=== PATIENT | male | born 2000 | race Two or more races ===

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

== ENCOUNTER 2024-07-08 21:34 | Emergency (ER) | payer MEDICAID, SELFPAY ==
[2024-07-08 21:40] VITALS: BP 126/65; PULSE 54; RESP 18; TEMP 36.6; O2SAT 100; BMI 16.7
[2024-07-08] MEDS: Acetaminophen 325 MG TABLET 975 MG PO (23:47)
[2024-07-09 00:08] LABS: Appearance Urine Cloudy; Color Urine Yellow; Glucose Urine UA Negative (Negative); Leukocyte Esterase Urine Large (3+) (Negative); Nitrite Urine Negative (Negative); PH 8.5 (5.0-9.0); Specific Gravity - Urine 1.025 (1.005-1.025); UMIC TRIGGER UACC YES; Urine Blood Negative (Negative); Urine Ketones Trace mg/dL (Negative); Urine Protein Trace mg/dL (Neg-Trace)
[2024-07-09 00:11] LABS: Bacteria Urine None Seen (None Seen); Hyaline Casts Urine 0-2 /LPF (0-2); RBC Urine 0-2 /HPF (0-2); Squamous Epithelial Cell Urine 0-2 /HPF (0-2); UACC Culture Trigger YES; WBC Urine >50 /HPF (0-5)
[2024-07-09 01:08] VITALS: BP 109/62; PULSE 57; RESP 16; TEMP 36.1; O2SAT 98
[2024-07-09 01:35] LABS: CT PCR NOT DETECTED (Not Detect.); NG PCR DETECTED (Not Detect.)
[2024-07-09 04:00] VITALS: BP 106/60; PULSE 50; RESP 20; TEMP 36.8; O2SAT 100
--- NOTE | 2024-07-09 04:33 | ED_ITS ---
HPI - Male Genitourinary General Chief complaint: Urogenital-Male Stated complaint: genital pain Time Seen by Provider: 07/09/24 04:33 Source: patient Mode of arrival: ambulatory Limitations: no limitations History of Present Illness ED Provider: Dr. Albaro Kaur HPI Narrative: 23-year-old male who presents emergency department for evaluation of penile discharge and genital pain x2 days. The patient states that he had unprotected sex several days prior. Patient states the pain is worse with urination. He states he has had loose stools and a headache. He denied fever, chills, rash. Related Data Previous Rx's ?Medication ?Instructions ?Recorded ibuprofen 600 mg tablet 600 mg PO Q6H PRN pain #14 tabs 11/17/21 metronidazole 500 mg tablet 2,000 mg (4 x 500 mg) PO ONCE #4 07/09/24 tabs Allergies Allergy/AdvReac Type Severity Reaction Status Date / Time No Known Allergies Allergy Verified 07/08/24 21:42 Review of Systems Review of Systems: Yes all other systems are reviewed and are negative [facility] Social History Social History Smoked in Last 30 Days: Yes Substance Use Type: Marijuana Advance Directives: No Do you have a plan to hurt others: No Plan Physical Exam Vital Signs: Vital Signs: Last Vital Signs Temp 97 F 07/09/24 01:08 Pulse 57 07/09/24 01:08 Resp 16 07/09/24 01:08 BP 109/62 07/09/24 01:08 Pulse Ox 98 07/09/24 01:08 O2 Del Method Room Air 07/09/24 01:08 BMI result Body Mass Index 16.7 Vital signs were normal Exam: Genital: Uncircumcised male penis with thick yellow discharge, no lesions noted on the patient was. Testicles are descended, nontender, no epididymal tenderness Medications Administered Discontinued Medications Generic Name Dose Route Start Last Admin Trade Name Freq PRN Reason Stop Dose Admin Acetaminophen 975 mg 07/08/24 23:44 07/08/24 23:47 Acetaminophen 325 Mg Tablet PO 07/08/24 23:45 975 mg ONCE ONE Administration Medical Decision Making Medical Decision Making [facility] Narrative: 23-year-old male with no significant past medical history presents emergency department for evaluation penile discharge several days after having unprotected sex. Vital signs were unremarkable. Exam did reveal a thick yellow penile discharge with no lesions and no testicular epididymal tenderness. Differential diagnosis: ?Includes but is not limited to gonorrhea, chlamydia, Trichomonas, HIV disease, syphilis Course: My interpretation patient's laboratory evaluation is as follows: Urinalysis was positive for leukocyte esterase. Microscopic revealed greater than 50 WBCs, no bacteria. Urine tested positive for gonorrhea DNA . Patient was treated with ceftriaxone with 1% lidocaine 500 mg IM. He was also given azithromycin 1000 mg orally. He was given a prescription for metronidazole 2000 mg orally to take 24 hours from now. Patient was tested for HIV and syphilis I did discuss this with the patient. He was advised to check the patient portal to check these results and I did tell him if these results were positive that in the emergency department would contact him. Admission/Observation Consideration of admission/observation: Escalation of care including admission/observation considered (No) Lab Data MDM Lab Attestation statement: I reviewed the patient's lab results. Labs: Lab Results 07/08/24 Range/Units 23:50 Urine Color Yellow Urine Appearance Cloudy Urine pH 8.5 (5.0-9.0) Ur Specific Morrow 1.025 (1.005-1.025) Urine Protein Trace (Neg-Trace) mg/dL Urine Glucose (UA) Negative (Negative) mg/dL Urine Ketones Trace (Negative) mg/dL Urine Blood Negative (Negative) Urine Nitrite Negative (Negative) Ur Leukocyte Esterase Large (3+) H (Negative) Urine RBC 0-2 (0-2) /HPF Urine WBC >50 H (0-5) /HPF Ur Squamous Epith Cells 0-2 (0-2) /HPF Urine Bacteria None Seen (None Seen) Hyaline Casts 0-2 (0-2) /LPF Chlam trachomat DNA PCR NOT DETECTED (Not Detect.) N.gonorrhoeae DNA (PCR) DETECTED A (Not Detect.) Prescription Management I considered prescription management with: Antibiotic (metronidazole) Discharge Plan Discharge Clinical Impression: Urethritis, Acute gonorrhea of genitourinary tract Patient Disposition: Home, Self-Care Instructions: Gonorrhea (ED) Additional Instructions: Your urine test was positive for gonorrhea. This is a sexually transmitted disease. This was treated with ceftriaxone 500 mg IM. You need to tell your sexual partners that they also need to be evaluated and treated for gonorrhea and other sexually transmitted diseases. You were also treated for chlamydia with azithromycin 1000 mg orally. I am going to treat you for Trichomonas with metronidazole 2000 mg orally. I sent a prescription to the [facility] on [facility]. Pick this prescription up today but do not take this medication until Saturday night. Do not drink alcohol for at least 24 hours after you take metronidazole. The tested you for HIV disease and syphilis. These tests do not come back right away but if they come back positive we will call you. Make sure that we have your correct phone number. You can also check these results on the patient portal Follow-up with your doctor in 2 days. Please return to the emergency department if your symptoms get worse or if you develop any symptoms that are concerning to you. Prescriptions: New metronidazole 500 mg tablet 2,000 mg PO ONCE Qty: 4 0RF No Action ibuprofen 600 mg tablet 600 mg PO Q6H PRN (Reason: pain) Qty: 14 0RF Print Language: Welsh
[2024-07-09] MEDS: cefTRIAXone sodium 500 MG, Lidocaine HCl 1 % MPF 1 ML IM (05:10)
[2024-07-09] MEDS: Azithromycin 500 MG TABLET 1000 MG PO (05:10)
[2024-07-09 05:17] VITALS: BP 106/60; PULSE 50; RESP 20; TEMP 36.8; O2SAT 100
[2024-07-09 08:07] LABS: Syphilis Screen Nonreactive (Nonreactive)
[2024-07-09 08:09] LABS: HIV AB/AG Nonreactive (Nonreactive); HIV Num 1 0.05 S/CO (0.00-0.99)
== END 2024-07-09 05:27 | disposition home or self-care (01) ==
PROVIDERS: Emergency Provider Emergency Medicine Emergency Medical Services
DX: A54.01 Gonococcal cystitis and urethritis, unspecified (principal); A54.9 Gonococcal infection, unspecified; N50.89 Other specified disorders of the male genital organs; Z20.2 Contact with and (suspected) exposure to infections with a predominantly sexual mode of transmission; Z79.899 Other long term (current) drug therapy
CPT/HCPCS: 36415; 81001; 81003; 86780; 87086; 87389; 87491; 87591; 96372; 99284; J0696; J2003